=== PATIENT | female | born 1995 | race Asian ===

== ENCOUNTER 2018-08-12 01:21 | Emergency (ER) | payer MEDICAID ==
[2018-08-12] MEDS ORDERED: fentaNYL 100 MCG/2 ML INJ IVP ONE (01:40)
[2018-08-12] MEDS ORDERED: ONDANSETRON 4 MG/2 ML VIAL IVP ONE (01:40)
[2018-08-12] MEDS ORDERED: NS 1,000 ML IV ONE (01:40)
--- NOTE | 2018-08-12 01:42 | EDPHY ---
H & P Stated Complaint: RLQ PAIN SINCE 6 PM, NO VOMITING SOME NAUSEA AND CHILLS Time Seen by Provider: 08/12/18 01:35 HPI/ROS: Chief Complaint: Abdominal pain HPI: 23-year-old woman presenting with right-sided abdominal pain. Patient states that pain began over 24 hr ago in the central to upper abdomen. In the last 12 hr it is migrated to the right lower quadrant. She was seen at urgent care and told that if it worsens to come the emergency department. Some nausea but no vomiting. No diarrhea or constipation. Last menstrual. Is now. She has never been . No urinary urgency or frequency. Pain is worse with walking or riding in a car. Does not have a history of similar pain in the past. ROS: 10 systems were reviewed and were negative except those elements noted in the HPI. PMH: Denies Social History: [No] smoking, [no] alcohol, [ no recreational drug use] Family History: [non-contributory] Physical Exam: Gen: [Awake], [Alert], [No Distress] HEENT: [ ] [Nose: no rhinorrhea] Eyes: [PERRLA], [EOMI] Mouth: [Moist mucosa] [] Neck: [Supple], [no JVD] Chest: [nontender], [lungs clear to auscultation] Heart: [S1, S2 normal], [no murmur] Abd: [Soft], right lower quadrant tenderness, [no guarding] Back: [no CVA tenderness], [no] midline tenderness [] Ext: [no] edema, [non-tender] Skin: [no rash] Neuro: [CN II-XII intact], [Sensation grossly intact], Strength [5]/5 in [ bilateral] [upper and] [lower] extremities - Personal History LMP (Females 10-55): Now Current Tetanus/Diphtheria Vaccine: Unsure Current Tetanus Diphtheria and Acellular Pertussis (TDAP): Unsure - Medical/Surgical History Hx Asthma: No Hx Chronic Respiratory Disease: No Hx Diabetes: No Hx Cardiac Disease: No Hx Renal Disease: No Hx Cirrhosis: No Hx Alcoholism: No Hx HIV/AIDS: No Hx Splenectomy or Spleen Trauma: No Other PMH: pmh- uti - Social History Smoking Status: Never smoked Constitutional: Initial Vital Signs Temperature (C) 36.5 C 08/12/18 01:25 Heart Rate 69 08/12/18 01:25 Respiratory Rate 18 08/12/18 01:25 Blood Pressure 127/80 H 08/12/18 01:25 O2 Sat (%) 96 08/12/18 01:25 O2 Delivery Mode Room Air Allergies/Adverse Reactions: No Known Allergies Allergy (Verified 08/12/18 01:28) Home Medications: Medication Instructions Recorded NK [No Known Home Meds] 08/12/18 Medical Decision Making - Diagnostics Imaging Results: Right lower quadrant ultrasound has a nonvisualized appendix, no free fluid. Study interpreted by Dr. Lopez. Imaging: Discussed imaging studies w/ call worker Radiologist ED Course/Re-evaluation: 23-year-old woman with right-sided abdominal pain. Some mild tenderness right lower quadrant. No adnexal tenderness. Ultrasound did not have a visualized appendix. Patient does not have been elevation or white blood cell count or left shift. Repeat examination her abdomen is soft and very benign. We have discussed that we cannot entirely rule out an early appendicitis. I have offered the option of CT scanning now or watchful waiting. She would prefer to hold off on CT scanning. Plan will be to discharge to home. She will return in 12 hr if symptoms are not improving. She will return sooner if they are worse. Patient understands these instructions and will return for any concerns. - Data Points Laboratory Results: Laboratory Results 08/12/18 01:37 08/12/18 01:37 08/12/18 08/12/18 08/12/18 02:20 01:37 01:37 WBC RBC Hgb Hct MCV MCH MCHC RDW Plt Count MPV Neut % (Auto) Lymph % (Auto) [place] % (Auto) Eos % (Auto) Baso % (Auto) Nucleat RBC Rel Count Absolute Neuts (auto) Absolute Lymphs (auto) Absolute Monos (auto) Absolute Eos (auto) Absolute Basos (auto) Absolute Nucleated RBC Immature Gran % Immature Gran # Sodium 139 mEq/L mEq/L (135-145) Potassium 3.7 mEq/L mEq/L (3.5-5.2) Chloride 109 mEq/L mEq/L (97-110) Carbon Dioxide 21 mEq/l L mEq/l (22-31) Anion Gap 9 mEq/L mEq/L (6-14) BUN 12 mg/dL mg/dL (7-23) Creatinine 0.5 mg/dL L mg/dL (0.6-1.0) Estimated GFR > 60 Glucose 101 mg/dL H mg/dL (70-100) Calcium 8.8 mg/dL mg/dL (8.5-10.4) Beta HCG, Qual NEGATIVE Urine Color YELLOW Urine Appearance MODERATELY TURBID Urine pH 7.0 (5.0-7.5) Ur Specific [place] 1.015 (1.002-1.030) Urine Protein NEGATIVE (NEGATIVE) Urine Ketones NEGATIVE (NEGATIVE) Urine Blood 3+ H (NEGATIVE) Urine Nitrate NEGATIVE (NEGATIVE) Urine Bilirubin NEGATIVE (NEGATIVE) Urine Urobilinogen NEGATIVE EU EU (0.2-1.0) Ur Leukocyte Esterase NEGATIVE (NEGATIVE) Urine RBC 5-10 /hpf H /hpf (0-3) Urine WBC 1-3 /hpf /hpf (0-3) Ur Epithelial Cells 1+ /lpf /lpf (NONE-1+) Amorphous Sediment PRESENT /hpf /hpf (NONE-1+) Urine Bacteria 1+ /hpf H /hpf (NONE SEEN) Urine Mucus TRACE /lpf /lpf (NONE-1+) Urine Glucose NEGATIVE (NEGATIVE) 08/12/18 01:37 WBC 6.24 10^3/uL 10^3/uL (3.80-9.50) RBC 5.01 10^6/uL 10^6/uL (4.18-5.33) Hgb 14.9 g/dL g/dL (12.6-16.3) Hct 44.0 % % (38.0-47.0) MCV 87.8 fL fL (81.5-99.8) MCH 29.7 pg pg (27.9-34.1) MCHC 33.9 g/dL g/dL (32.4-36.7) RDW 12.7 % % (11.5-15.2) Plt Count 232 10^3/uL 10^3/uL (150-400) MPV 10.3 fL fL (8.7-11.7) Neut % (Auto) 44.7 % % (39.3-74.2) Lymph % (Auto) 40.5 % % (15.0-45.0) Barber % (Auto) 10.6 % % (4.5-13.0) Eos % (Auto) 3.2 % % (0.6-7.6) Baso % (Auto) 0.8 % % (0.3-1.7) Nucleat RBC Rel Count 0.0 % % (0.0-0.2) Absolute Neuts (auto) 2.79 10^3/uL 10^3/uL (1.70-6.50) Absolute Lymphs (auto) 2.53 10^3/uL 10^3/uL (1.00-3.00) Absolute Monos (auto) 0.66 10^3/uL 10^3/uL (0.30-0.80) Absolute Eos (auto) 0.20 10^3/uL 10^3/uL (0.03-0.40) Absolute Basos (auto) 0.05 10^3/uL 10^3/uL (0.02-0.10) Absolute Nucleated RBC 0.00 10^3/uL 10^3/uL (0-0.01) Immature Gran % 0.2 % % (0.0-1.1) Immature Gran # 0.01 10^3/uL 10^3/uL (0.00-0.10) Sodium Potassium Chloride Carbon Dioxide Anion Gap BUN Creatinine Estimated GFR Glucose Calcium Beta HCG, Qual Urine Color Urine Appearance Urine pH Ur Specific [place] Urine Protein Urine Ketones Urine Blood Urine Nitrate Urine Bilirubin Urine Urobilinogen Ur Leukocyte Esterase Urine RBC Urine WBC Ur Epithelial Cells Amorphous Sediment Urine Bacteria Urine Mucus Urine Glucose Medications Given: Discontinued Medications Fentanyl (Sublimaze) 50 mcg IVP EDNOW ONE Stop: 08/12/18 01:41 Last Admin: 08/12/18 01:49 Dose: 50 mcg Sodium Chloride (Ns) 1,000 mls @ 0 mls/hr IV ONCE ONE; Wide Open PRN Reason: Protocol Stop: 08/12/18 01:41 Last Admin: 08/12/18 01:50 Dose: 1,000 mls Ondansetron HCl (Zofran) 4 mg IVP EDNOW ONE Stop: 08/12/18 01:41 Last Admin: 08/12/18 01:49 Dose: 4 mg Departure - Departure Disposition: Home, Routine, Self-Care Clinical Impression: Abdominal pain Condition: Good Instructions: Acute Abdominal Pain (ED) Additional Instructions: Return to the emergency department in 12 hr for recheck if you're pain is not improving. Return sooner if the pain worsens. Take ibuprofen, 600 mg every 8 hr. You may alternate with acetaminophen, 1000 mg every 8 hr. Otherwise follow up with primary care physician in 2-3 days for further evaluation. Referrals: Elma Edwards DO [Primary Care Provider] - As per Instructions
[2018-08-12 01:47] LABS: PLATELET COUNT 232 10^3/uL (150-400)
[2018-08-12 04:02] VITALS: BP 106/65
== END 2018-08-12 04:01 | disposition home or self-care (01) ==
DX: R10.31 Right lower quadrant pain (principal); E86.9 Volume depletion, unspecified
CPT/HCPCS: 96374; J2405; J3010